=== PATIENT | male | born 1980 ===

== ENCOUNTER → 2017-08-28 | Outpatient (CLI) | payer OTHER ==
[~2017-08-28] MED LIST: BUCALSEP SPRAY30 ML MM; ENALAPRIL MALEA20 MG; ZITHROMAX200 MG PO
== END | disposition home or self-care (01) ==
LOC: PPHC 16:42
DX: Z76.0 Encounter for issue of repeat prescription (principal); R51 Headache; K29.60 Other gastritis without bleeding